=== PATIENT | male | born 1975 | race Hispanic/Latino ===

== ENCOUNTER → 2018-11-20 | Day surgery (SDC) | payer BC ==
[2018-11-19 15:47] LABS: BASOPHILS % 0.7 % (0.0-1.0); EOSINOPHILS # (AUTO) 0.1 (0.0-0.4); EOSINOPHILS % 1.8 % (0.0-6.0); HEMATOCRIT 44.3 % (38.2-49.6); HEMOGLOBIN 15.3 g/dL (14.0-18.0); LYMPHOCYTES # (AUTO) 1.6 (1.0-3.2); LYMPHOCYTES % 34.8 % (18.0-39.1); MEAN CORPUSCULAR HEMOGLOBIN 28.9 pg (28-32); MEAN CORPUSCULAR HGB CONC 34.5 g/dL (31-35); MEAN CORPUSCULAR VOLUME 83.6 fL (81-99); MONOCYTES # (AUTO) 0.5 (0.2-0.8); MONOCYTES % 10.6 % (4.4-11.3); NEUTROPHILS # (AUTO) 2.4 (2.1-6.9); NEUTROPHILS % 51.9 % (38.7-80.0); PLATELET COUNT 244 x10e3/uL (140-360); RED CELL DISTRIBUTION WIDTH 13.5 % (11.7-14.4)
[2018-11-19 16:00] LABS: ANION GAP 12.3 mmol/L (8-16); BLOOD UREA NITROGEN 18 mg/dL (7-26); BUN/CREATININE RATIO 21 (6-25); CALCIUM 9.4 mg/dL (8.4-10.2); CARBON DIOXIDE 25 mmol/L (22-29); CHLORIDE 104 mmol/L (98-107); CREATININE, SERUM 0.86 mg/dL (0.72-1.25); EST GLOMERULAR FILTRATION RATE > 60 ML/MIN (60-); GLUCOSE 93 mg/dL (74-118); POTASSIUM 4.3 mmol/L (3.5-5.1); SODIUM 137 mmol/L (136-145)
[~2018-11-20] MED LIST: BUPIVACAINE 0.25%/EPI 30ML SDV INJ ONE; CEFAZOLIN SOD 1 GM VIAL ONE; CEFAZOLIN SOD 1 GM/NS 50ML 50 ML IV ONE; DEXAMETHASONE SOD PHOS INJ 4 MG/ML VIAL ONE; FENTANYL CITRATE/PF 100MCG/2 ML INJ ONE; HYDROCODONE/APAP 7.5MG-325MG 1 EA TAB ONE; KETOROLAC TROMETHAMINE 30 MG/ML VIAL ONE; LIDOCAINE HCL 2% LOCAL INJ 5 ML SDV VIAL INJ ONE; MIDAZOLAM HCL 2 MG/2 ML VIAL ONE; ONDANSETRON HCL INJ 2MG/ML 2ML 2 MG/ML VIAL ONE; PROPOFOL IV EMULSION 10 MG/ML 20 ML VIAL ONE; SEVOFLURANE INHAL SOLN 250 ML PEN BTL ONE
--- NOTE | 2018-11-20 13:19 | Operative Report ---
DATE OF PROCEDURE: 11/20/2018 SURGEON: Joey Aparicio MD PREOPERATIVE DIAGNOSIS: Recurrent right inguinal hernia. POSTOPERATIVE DIAGNOSIS: Right inguinal hernia. PROCEDURE PERFORMED: Exploration of right groin and repair of right inguinal hernia. ANESTHESIA: General endotracheal. ESTIMATED BLOOD LOSS: Minimal. DRAINS: None. COMPLICATIONS: None. BURN CREW MEMBER: None. INDICATIONS AND FINDINGS: The patient is a 43-year-old male, who was seen in the office due to the hernia in the right groin. The patient gave a history of having had a repair of right groin hernia about 10 years ago at [facility]. Physical examination revealed a palpable and visible hernia in the right groin. There was right lower quadrant incision from previous appendectomy. INTRAOPERATIVE FINDINGS: The patient had no evidence of previous hernia repair on the right and he had a blowout of the right inguinal canal floor. There was no indirect sac. There was no femoral herniation. The patient was examined and under anesthesia was found to have a barely visible scar on the left groin, so that means that this patient did have a repair of a hernia, but it was a left inguinal hernia and not a right inguinal hernia in the past. DESCRIPTION OF PROCEDURE: With the patient lying on the operative table in the supine position and after administration of general anesthesia, he was prepped and draped for repair of recurrent right inguinal hernia. Preemptive anesthesia was given 0.25% Marcaine with epinephrine as an ilioinguinal nerve block and an incisional nerve block. A transverse groin incision was made, deepened through skin and subcutaneous tissue of Justin fascia until the external oblique aponeurosis was identified. This was incised along the course of the fibers, transecting the external inguinal ring. Medial and lateral leaves were developed. The cord was mobilized at the level of the pubic tubercle and retracted away from the operative field. There was no indirect hernia sac. There was a large blowout of the floor making this a direct hernia. We then its herniation of the properitoneal fat from the cord, which was very thin. The inguinal nerve was sacrificed to prevent neuroma formation. We then developed the preperitoneal space using blunt dissection. Again, there was no evidence of any previous repair. All of this was [place]. After we did that, we then deployed the Ultrapro hernia system oval type covering the preperitoneal space in all directions. The overlay part of the mesh was then placed over the inguinal canal floor after a slit was made on the cord. Then the mesh was secured to local tissues using a series of interrupted 2-0 Ethibond sutures. The wound was irrigated. Bleeding points were cauterized. Then, the wound was closed in two layers using 2-0 Vicryl for the external oblique aponeurosis and 2-0 plain gut for the soft tissues. The skin was closed using samia. The patient tolerated the procedure well and was taken to recovery room in stable condition. The was informed of the intraoperative findings. MD RHEA Price/NOY /[id number]
[2018-11-20 15:50] VITALS: BP 120/76
== END | disposition home or self-care (01) ==
LOC: OR 07:57
PROVIDERS: ATTEND Surgery
DX: K40.90 Unilateral inguinal hernia, without obstruction or gangrene, not specified as recurrent (principal); Z01.810 Encounter for preprocedural cardiovascular examination; Z01.812 Encounter for preprocedural laboratory examination; Z87.891 Personal history of nicotine dependence
CPT/HCPCS: 36415; 49505; 80048; 85025; 93005; C1781; J0690 ×2; J1100; J1885; J2001; J2250; J2405; J2704